=== PATIENT | male | born 1995 | race Caucasian/White ===

== ENCOUNTER 2021-10-28 01:49 | Emergency (ER) | payer SELFPAY ==
[~2021-10-28] VITALS: Ht 185.4 cm; Wt 95.5 kg
[2021-10-28 01:55] VITALS: TEMP 98.5
[2021-10-28 02:25] LABS: BASO % 0.8 % (0.0-2.0); EOS # 0.1 K/mm3 (0.0-0.7); EOS % 2.3 % (0.0-4.0); GRAN # 1.9 K/mm3 (1.4-6.5); GRAN % 47.8 % (42.2-75.2); LYMPH # 1.5 K/mm3 (1.2-3.4); MEAN CELL VOLUME 88 fl (80.0-100.0); MEAN CORPUSCULAR HEMOGLOBIN 30 pg (27-31); MEAN CORPUSCULAR HGB CONC 34 g/dl (33.0-37.0); MEAN PLATELET VOLUME 8.9 fl (7.4-10.4); MONO # 0.4 K/mm3 (0.1-0.6); MONO % 10.8 % (1.7-9.3); PLATELET COUNT 262 K/mm3 (130-400); RED BLOOD COUNT 4.99 M/mm3 (4.20-5.60); REDCELL DISTRIBUTION WIDTH-CV 12.4 % (11.5-14.5)
[2021-10-28 02:44] LABS: ALANINE AMINOTRANSFERASE 10 U/L (0-55); ALKALINE PHOSPHATASE 74 U/L (40-150); ANION GAP 16 mmol/L (7-16); AST,SGOT 17 U/L (5-34); BILIRUBIN,TOTAL 0.4 mg/dL (0.2-1.2); BLOOD UREA NITROGEN 13 mg/dL (9-21); CARBON DIOXIDE 21 mmol/L (22-29); CHLORIDE 105 mmol/L (98-107); CREATININE, serum 1.05 mg/dL (0.72-1.25); GLUCOSE 155 mg/dL (70-99); POTASSIUM 3.6 mmol/L (3.5-4.5); SODIUM 142 mmol/L (136-145)
[2021-10-28 02:52] LABS: TROPONIN-I < 0.010 ng/mL (0.00-0.033)
[2021-10-28 03:22] VITALS: BP 135/69; PULSE 72
== END 2021-10-28 03:22 | disposition home or self-care (01) ==
LOC: COL.ER 01:49
PROVIDERS: Emergency Medicine
DX: R07.89 Other chest pain (principal)
CPT/HCPCS: J1885; J2060

== ENCOUNTER 2023-07-01 14:02 | Emergency (ER) | payer SELFPAY ==
[~2023-07-01] VITALS: Ht 185.4 cm; Wt 93.2 kg
[~2023-07-01 14:02] MED LIST: FLEXERIL 1010 MG/TAB PO; NAPROSYN500 MG PO
[2023-07-01 14:14] VITALS: BP 130/80; TEMP 97.7
[2023-07-01] MEDS ORDERED: FLEXERIL 1010 MG/TAB PO (15:19)
[2023-07-01] MEDS ORDERED: Ketorolac 30 MG/ML VIAL IM ONE (15:30)
[2023-07-01 15:47] VITALS: PULSE 66
== END 2023-07-01 15:47 | disposition home or self-care (01) ==
LOC: COL.ER 14:02
DX: M54.50 Low back pain, unspecified (principal); X50.0XXA Overexertion from strenuous movement or load, initial encounter; Y92.59 Other trade areas as the place of occurrence of the external cause; Y99.0 Civilian activity done for income or pay
CPT/HCPCS: J1885; J2360

== ENCOUNTER 2023-08-12 02:42 | Emergency (ER) | payer SELFPAY ==
[~2023-08-12] VITALS: Ht 182.9 cm; Wt 97.7 kg
[2023-08-12 02:46] VITALS: TEMP 99.1
[2023-08-12] MEDS ORDERED: ZITHROMAX Z PA250 MG PO (03:52)
[2023-08-12] MEDS ORDERED: Azithromycin 250 MG TAB PO ONE (04:00)
[2023-08-12 04:07] VITALS: BP 125/88; PULSE 80
== END 2023-08-12 04:07 | disposition home or self-care (01) ==
LOC: COL.ER 02:42
DX: J20.9 Acute bronchitis, unspecified (principal); F17.290 Nicotine dependence, other tobacco product, uncomplicated

== ENCOUNTER 2023-09-06 02:27 | Emergency (ER) | payer SELFPAY ==
[~2023-09-06] VITALS: Ht 182.9 cm; Wt 95.5 kg
[~2023-09-06 02:27] MED LIST changes: +ZITHROMAX Z PA250 MG PO
[2023-09-06 02:32] VITALS: TEMP 97.9
[2023-09-06] MEDS ORDERED: Ondansetron 4 MG/2 ML VIAL IV PRN (02:45)
[2023-09-06] MEDS ORDERED: NS 1,000 ML IV ONE (02:45)
[2023-09-06] MEDS ORDERED: Morphine 4 MG/ML VIAL IV ONE (02:45)
[2023-09-06 02:57] LABS: BASO % 0.4 % (0.0-2.0); EOS # 0.1 K/mm3 (0.0-0.7); EOS % 1.5 % (0.0-4.0); GRAN # 4.3 K/mm3 (1.4-6.5); GRAN % 64.5 % (42.2-75.2); HEMATOCRIT 46.2 % (42.0-52.0); HEMOGLOBIN 16.2 g/dl (13.5-18.0); LYMPH # 1.7 K/mm3 (1.2-3.4); LYMPH % 25.7 % (20.0-51.0); MEAN CELL VOLUME 90 fl (80.0-100.0); MEAN CORPUSCULAR HEMOGLOBIN 32 pg (27-31); MEAN CORPUSCULAR HGB CONC 35 g/dl (33.0-37.0); MONO # 0.5 K/mm3 (0.1-0.6); MONO % 7.6 % (1.7-9.3); PLATELET COUNT 275 K/mm3 (130-400); RED BLOOD COUNT 5.12 M/mm3 (4.20-5.60); REDCELL DISTRIBUTION WIDTH-CV 12.8 % (11.5-14.5)
[2023-09-06 03:21] LABS: ALANINE AMINOTRANSFERASE 23 U/L (0-55); ALBUMIN 3.5 g/dL (3.5-5.0); ALKALINE PHOSPHATASE 77 U/L (40-150); ANION GAP 7 mmol/L (7-16); AST,SGOT 23 U/L (5-34); BILIRUBIN,TOTAL 0.4 mg/dL (0.2-1.2); BLOOD UREA NITROGEN 11 mg/dL (9-21); CHLORIDE 107 mEq/L (98-107); CREATININE, serum 0.94 mg/dL (0.72-1.25); GLUCOSE 112 mg/dL (70-99); POTASSIUM 4.1 mEq/L (3.5-4.5); SODIUM 138 mEq/L (136-145); TOTAL PROTEIN 6.3 g/dl (6.2-8.1)
[2023-09-06 03:37] LABS: TROPONIN-I < 0.010 ng/mL (0.00-0.033)
[2023-09-06 03:55] VITALS: BP 125/80; PULSE 62
[2023-09-06] MEDS ORDERED: Ketorolac 15 MG/ML VIAL IV ONE (04:00)
== END 2023-09-06 03:56 | disposition home or self-care (01) ==
LOC: COL.ER 02:27
PROVIDERS: Personal Emergency Response Attendant
DX: R07.89 Other chest pain (principal); R11.0 Nausea; K21.9 Gastro-esophageal reflux disease without esophagitis; Z79.899 Other long term (current) drug therapy
CPT/HCPCS: J1885; J2270; J2405; J7030

== ENCOUNTER 2023-12-11 03:22 | Emergency (ER) | payer SELFPAY ==
[~2023-12-11] VITALS: Ht 185.4 cm; Wt 97.7 kg
[2023-12-11 03:27] VITALS: TEMP 98.1
[2023-12-11] MEDS ORDERED: Mag/Al Hydrox/Simeth Susp 30 ML CUP PO ONE (03:30)
[2023-12-11] MEDS ORDERED: Ketorolac 60 MG/2 ML VIAL IM ONE (04:00)
[2023-12-11 04:53] VITALS: BP 126/97; PULSE 66
== END 2023-12-11 04:53 | disposition home or self-care (01) ==
LOC: COL.ER 03:22
DX: R07.81 Pleurodynia (principal); K21.9 Gastro-esophageal reflux disease without esophagitis; Z79.899 Other long term (current) drug therapy
CPT/HCPCS: J1885